=== PATIENT | female | born 1955 | race Caucasian/White ===

== ENCOUNTER 2018-03-17 12:34 | Outpatient (CLI) | payer BC | END 2018-03-17 12:35 | disposition home or self-care (01) | LOC: BICMAMMO 12:34 | PROVIDERS: ATTEND Obstetrics & Gynecology | DX: Z12.31 Encounter for screening mammogram for malignant neoplasm of breast (principal); Z80.3 Family history of malignant neoplasm of breast | CPT/HCPCS: 77063; 77067 ==

== ENCOUNTER 2019-03-22 13:28 | Outpatient (CLI) | payer BC ==
--- NOTE | 2019-03-22 15:49 | MMO ---
Bilateral MAMMO Bilat Screen [facility]. CLINICAL HISTORY: Patient is 63 years old and is seen for screening. The patient has no family history of breast cancer. The patient has a history of other cancer at age 52. The patient has a history of bilateral Breast reduction in 05/1997. VIEWS: The views performed were: bilateral craniocaudal with tomosynthesis and bilateral mediolateral oblique with tomosynthesis. FILMS COMPARED: The present examination has been compared to prior imaging studies performed at [facility] on 02/04/2015, 02/20/2016, 03/11/2017 and 03/17/2018. MAMMOGRAM FINDINGS: The breasts are almost entirely fat. There are no suspicious masses, suspicious calcifications, or new areas of architectural distortion. IMPRESSION: THERE IS NO MAMMOGRAPHIC EVIDENCE OF MALIGNANCY. A ROUTINE FOLLOW-UP MAMMOGRAM IN 1 YEAR IS RECOMMENDED. THE RESULTS OF THIS EXAM WERE SENT TO THE PATIENT. ACR BI-RADS Category 1 - Negative MAMMOGRAPHY NOTE: 1. A negative mammogram report should not delay a biopsy if a dominant of clinically suspicious mass is present. 2. Approximately 10% to 15% of breast cancers are not detected by mammography. 3. Adenosis and dense breasts may obscure an underlying neoplasm. Reported by: CHRISTIAN SEBASTIAN MD Electonically Signed: [id number]
== END 2019-03-22 13:29 | disposition home or self-care (01) ==
LOC: BICMAMMO 13:28
PROVIDERS: ATTEND Obstetrics & Gynecology
DX: Z12.31 Encounter for screening mammogram for malignant neoplasm of breast (principal); Z85.89 Personal history of malignant neoplasm of other organs and systems; Z98.82 Breast implant status
CPT/HCPCS: 77063; 77067

== ENCOUNTER 2020-03-26 12:24 | Outpatient (CLI) | payer MEDICARE ==
--- NOTE | 2020-03-26 13:58 | MMO ---
Bilateral MAMMO Bilat Screen [facility]. CLINICAL HISTORY: Patient is 64 years old and is seen for screening. The patient has no family history of breast cancer. The patient has a history of other cancer at age 52. The patient has a history of bilateral Breast reduction in 05/1997. VIEWS: The views performed were: bilateral craniocaudal with tomosynthesis and bilateral mediolateral oblique with tomosynthesis. FILMS COMPARED: The present examination has been compared to prior imaging studies performed at [facility] on 02/20/2016, 03/11/2017, 03/17/2018 and 03/22/2019. This study has been interpreted with the assistance of computer-aided detection. MAMMOGRAM FINDINGS: The breasts are almost entirely fat. There are no suspicious masses, suspicious calcifications, or new areas of architectural distortion. IMPRESSION: THERE IS NO MAMMOGRAPHIC EVIDENCE OF MALIGNANCY. A ROUTINE FOLLOW-UP MAMMOGRAM IN 1 YEAR IS RECOMMENDED. THE RESULTS OF THIS EXAM WERE SENT TO THE PATIENT. ACR BI-RADS Category 1 - Negative MAMMOGRAPHY NOTE: 1. A negative mammogram report should not delay a biopsy if a dominant of clinically suspicious mass is present. 2. Approximately 10% to 15% of breast cancers are not detected by mammography. 3. Adenosis and dense breasts may obscure an underlying neoplasm. Reported by: CHRISTIAN SEBASTIAN MD Electonically Signed: [id number]
== END 2020-03-26 12:25 | disposition home or self-care (01) ==
LOC: BICMAMMO 12:24
PROVIDERS: ATTEND Obstetrics & Gynecology
DX: Z12.31 Encounter for screening mammogram for malignant neoplasm of breast (principal); Z85.89 Personal history of malignant neoplasm of other organs and systems; Z98.890 Other specified postprocedural states
CPT/HCPCS: 77063; 77067

== ENCOUNTER 2022-04-02 08:34 | Outpatient (CLI) | payer MEDICARE, OTHER | END 2022-04-02 08:35 | disposition home or self-care (01) | LOC: BICMAMMO 08:34 | PROVIDERS: ATTEND Internal Medicine | DX: Z12.31 Encounter for screening mammogram for malignant neoplasm of breast (principal); Z98.890 Other specified postprocedural states; Z85.89 Personal history of malignant neoplasm of other organs and systems | CPT/HCPCS: 77063; 77067 ==

== ENCOUNTER 2022-05-08 08:09 | Outpatient (CLI) | payer MEDICARE, OTHER ==
[2022-05-08 10:03] LABS: #Eosinphils 0.2 10x3/uL (0.0-0.5); #Monocytes 0.6 10x3/uL (0.0-1.1); #Neutrophils 3.3 10x3/uL (1.5-8.4); %Basophils 0.5 % (0.0-2.0); %Eosinophils 4.2 % (0.0-6.0); %Lymphocytes 23.5 % (18.0-47.0); %Monocytes 10.9 % (0.0-10.0); %Neutrophils 60.7 % (40.0-75.0); Mean Corpuscular HGB CONC 33.1 g/dL (32.0-36.0); Mean Corpuscular Volume 90.8 fl (81.6-98.3); Mean Platelet Volume 10.2 fl (7.4-10.4); Platelet Count 278 10x3/uL (150-450); Red Blood Cell (RBC) Count 4.66 10x6/uL (3.90-5.03); White Blood Cell (WBC) Count 5.5 10x3/uL (3.5-10.5)
[2022-05-08 10:20] LABS: Prothrombin Time 10.6 sec (9.5-12.1)
[2022-05-08 10:33] LABS: Anion Gap 12 mmol/L (10-20); BUN (Urea Nitrogen) 15 mg/dL (9.8-20.1); Calc. Creatinine Clearance 0 mL/min (70-130); Calcium 8.9 mg/dL (7.8-10.44); Carbon Dioxide 30 mmol/L (23-31); Chloride 103 mmol/L (98-107); Estimated GFR 86; Glucose 90 mg/dL (80-115); Sodium 140 mmol/L (136-145)
== END 2022-05-08 08:10 | disposition home or self-care (01) ==
LOC: LABBT 08:09
PROVIDERS: ATTEND Orthopaedic Surgery
DX: Z01.818 Encounter for other preprocedural examination (principal); M16.11 Unilateral primary osteoarthritis, right hip; Z20.822 Contact with and (suspected) exposure to COVID-19
CPT/HCPCS: 80048; 85025; 85610; 87081; 87811; 93005; 93010

== ENCOUNTER 2022-05-12 09:57 | Inpatient (IN) | payer MEDICARE, OTHER ==
[2022-05-11 12:00] VITALS: BMI 25.7
[2022-05-12] MEDS ORDERED: Propofol 500 MG/50 ML VIAL ONE (10:19)
[2022-05-12] MEDS ORDERED: diphenhydrAMINE 25 MG CAP PO PRN (10:46)
[2022-05-12] MEDS ORDERED: Acetaminophen 325 MG TAB PO PRN (10:46)
[2022-05-12] MEDS ORDERED: Fentanyl 100 MCG/2 ML VIAL SLOW IVP PRN ×2 (10:46)
[2022-05-12] MEDS ORDERED: Promethazine HCl 25 MG/ML VIAL IM PRN ×2 (10:46→13:29)
[2022-05-12] MEDS ORDERED: HYDROcodone/Acetaminophen 10/325 mg Tablet PO PRN ×2 (10:46)
[2022-05-12] MEDS ORDERED: Ondansetron PF 4 MG/2 ML Vial IVP PRN (10:46)
[2022-05-12] MEDS ORDERED: Zolpidem Tartrate 5 MG TAB PO PRN (10:46)
[2022-05-12] MEDS ORDERED: Vancomycin 1 GM/200 ML BAG ONE (10:47)
[2022-05-12] MEDS ORDERED: Tranexamic Acid 1,000 MG/10 ML VIAL ONE (10:47)
[2022-05-12] MEDS ORDERED: Sodium Chloride 0.9% 100 ML ONE (10:47)
[2022-05-12] MEDS ORDERED: Bupivacaine PF 0.5% 30 ML VIAL ONE (10:57)
[2022-05-12] MEDS ORDERED: fentaNYL Citrate/PF 100 MCG/2 ML SYRINGE ONE (11:02)
[2022-05-12] MEDS ORDERED: Midazolam HCl 2 mg/2 ml Vial ONE (11:15)
[2022-05-12] MEDS ORDERED: Fentanyl 100 MCG/2 ML VIAL ONE ×2 (11:15→13:26)
[2022-05-12] MEDS ORDERED: PROPOFOL 200 MG/20 ML VIAL ONE (11:50)
[2022-05-12] MEDS ORDERED: ePHEDrine 50 MG/ML VIAL ONE (11:50)
[2022-05-12] MEDS ORDERED: Promethazine HCl 25 MG/ML VIAL IVPB PRN (13:29)
[2022-05-12] MEDS ORDERED: Ondansetron HCl/PF 4 MG/2 ML Vial IVP PRN (13:29)
[2022-05-12] MEDS ORDERED: CEFAZOLIN 2 GM in Sodium Chloride 0.9% 100 ML IVPB SCH ×2 (14:00→20:00)
[2022-05-12] MEDS ORDERED: Ketorolac Tromethamine 30 MG/ML VIAL IVP SCH ×2 (14:00→20:00)
[2022-05-12] MEDS ORDERED: hydrALAZINE 20 MG/ML VIAL ONE (16:06)
[2022-05-12] MEDS: Sodium Chloride 0.9% 1,000 ML IV SCH ×2 (17:09→22:07)
[2022-05-12] MEDS: Aspirin 81 mg Enteric Coated Tablet PO SCH (21:20)
[2022-05-12] MEDS: Senokot S 8.6-50 MG TAB PO SCH (21:20)
[2022-05-12] MEDS: Ferrous Gluconate 324 MG TAB PO SCH (21:20)
[2022-05-12] MEDS: FLUoxetine HCl 20 MG CAP PO SCH (21:21)
[2022-05-13] MEDS ORDERED: CEFAZOLIN 2 GM in Sodium Chloride 0.9% 100 ML IVPB SCH (01:00)
[2022-05-13] MEDS: Ketorolac Tromethamine 30 MG/ML VIAL IVP SCH ×3 (01:35→17:25)
[2022-05-13] MEDS: Levothyroxine Sodium 112 MCG TAB PO SCH (05:42)
[2022-05-13 06:02] LABS: Hemoglobin 12.9 g/dL (12.0-16.0); Mean Corpuscular HGB CONC 31.9 g/dL (32.0-36.0); Mean Corpuscular Hemoglobin 30.6 pg (27.0-31.0); Mean Platelet Volume 7.8 fL (7.4-10.4); Platelet Count 246 thou/uL (130-400); RBC Distribution Width 12.6 % (11.5-14.5); Red Blood Cell (RBC) Count 4.22 mill/uL (4.20-5.40); White Blood Cell (WBC) Count 15.4 thou/uL (4.8-10.8)
[2022-05-13] MEDS: Sodium Chloride 0.9% 1,000 ML IV SCH ×2 (06:09→17:40)
[2022-05-13] MEDS: Multivitamin W/ Minerals 1 TAB PO SCH (10:09)
[2022-05-13] MEDS: Senokot S 8.6-50 MG TAB PO SCH ×2 (10:09→21:58)
[2022-05-13] MEDS: Cholecalciferol 1,000 UNITS (25 MCG) TAB PO SCH (10:09)
[2022-05-13] MEDS: Aspirin 81 mg Enteric Coated Tablet PO SCH ×2 (10:09→21:41)
[2022-05-13] MEDS: Ferrous Gluconate 324 MG TAB PO SCH ×2 (10:09→21:40)
[2022-05-13] MEDS: LACTINEX 1 TAB PO SCH (10:17)
[2022-05-13] MEDS ORDERED: Tamsulosin HCl 0.4 MG CAP PO SCH (11:00)
[2022-05-13] MEDS: FLUoxetine HCl 20 MG CAP PO SCH (21:41)
[2022-05-14] MEDS: Ketorolac Tromethamine 30 MG/ML VIAL IVP SCH ×2 (01:40→09:23)
[2022-05-14 02:25] LABS: #Eosinphils 0.1 thou/uL (0.0-0.7); #Lymphocytes 1.4 thou/uL (1.20-3.40); #Monocytes 1.4 thou/uL (0.11-0.59); #Neutrophils 7.9 thou/uL (1.40-6.50); %Basophils 0.1 % (0.0-1.0); %Eosinophils 0.7 % (0.0-10.0); %Lymphocytes 13.3 % (21.0-51.0); %Monocytes 12.9 % (0.0-10.0); %Neutrophils 72.9 % (42.0-75.0); Hemoglobin 11.3 g/dL (12.0-16.0); Mean Corpuscular HGB CONC 32.5 g/dL (32.0-36.0); Mean Corpuscular Hemoglobin 31.2 pg (27.0-31.0); Mean Corpuscular Volume 95.8 fL (78.0-98.0); Mean Platelet Volume 8.1 fL (7.4-10.4); Platelet Count 195 thou/uL (130-400); RBC Distribution Width 12.5 % (11.5-14.5); Red Blood Cell (RBC) Count 3.62 mill/uL (4.20-5.40); White Blood Cell (WBC) Count 10.8 thou/uL (4.8-10.8)
[2022-05-14 02:42] LABS: Anion Gap 11 mmol/L (10-20); BUN (Urea Nitrogen) 17 mg/dL (9.8-20.1); Calc. Creatinine Clearance 77 mL/min (70-130); Carbon Dioxide 25 mmol/L (23-31); Chloride 100 mmol/L (98-107); Estimated GFR 86; Glucose 129 mg/dL (80-115); Potassium 3.4 mmol/L (3.5-5.1); Sodium 133 mmol/L (136-145)
[2022-05-14] MEDS: Sodium Chloride 0.9% 1,000 ML IV SCH ×2 (03:12→12:55)
[2022-05-14] MEDS: Levothyroxine Sodium 112 MCG TAB PO SCH (06:02)
[2022-05-14] MEDS: LACTINEX 1 TAB PO SCH (09:20)
[2022-05-14] MEDS: Senokot S 8.6-50 MG TAB PO SCH (09:25)
[2022-05-14] MEDS: Multivitamin W/ Minerals 1 TAB PO SCH (09:25)
[2022-05-14] MEDS: Aspirin 81 mg Enteric Coated Tablet PO SCH (09:25)
[2022-05-14] MEDS: Cholecalciferol 1,000 UNITS (25 MCG) TAB PO SCH (09:25)
[2022-05-14] MEDS: Ferrous Gluconate 324 MG TAB PO SCH (09:25)
[2022-05-14 12:15] VITALS: BP 129/78; TEMP 98.8
== END 2022-05-14 16:47 | disposition home or self-care (01) | DRG 470 ==
LOC: SDC 09:57 → SJJU 14:05 → OBSVTOIN 05-14 07:43
PROVIDERS: ADMIT Orthopaedic Surgery; ATTEND Orthopaedic Surgery
PROC: 0SR9039 Replacement of Right Hip Joint with Ceramic Synthetic Substitute, Cemented, Open Approach (ICD-10-PCS; principal; 2022-05-12)
DX: M16.11 Unilateral primary osteoarthritis, right hip (principal); Z20.822 Contact with and (suspected) exposure to COVID-19; E78.5 Hyperlipidemia, unspecified; I25.10 Atherosclerotic heart disease of native coronary artery without angina pectoris; E03.9 Hypothyroidism, unspecified; Z95.5 Presence of coronary angioplasty implant and graft; Z79.890 Hormone replacement therapy; Z79.899 Other long term (current) drug therapy; Z88.8 Allergy status to other drugs, medicaments and biological substances
CPT/HCPCS: 36415; 80048; 85025; 85027; 96374; 96376; C1776; G0378; J0360; J0690; J1885; J2250; J2704; J3010; J3370; J3490; S0020

== ENCOUNTER 2024-03-24 07:53 | Inpatient (IN) | payer MEDICARE, OTHER ==
[2024-03-24] MEDS ORDERED: Ondansetron ODT 4 MG TAB PO PRN (10:26)
[2024-03-24] MEDS ORDERED: Calcium Carbonate 500 MG ChewTAB PO PRN (10:26)
[2024-03-24] MEDS ORDERED: Senokot S 8.6-50 MG TAB PO PRN (10:26)
[2024-03-24] MEDS: Piperacillin/Tazobactam 3.375 GM in Sodium Chloride 0.9% 100 ML IVPB SCH ×2 (11:24→17:58)
[2024-03-24] MEDS: Pantoprazole 40 MG VIAL IVP SCH ×2 (11:25→20:14)
[2024-03-24] MEDS: Lactated Ringer's 1,000 ML IV SCH (11:26)
[2024-03-24 13:01] VITALS: BMI 25.8
[2024-03-24] MEDS ORDERED: Montelukast Sodium 10 mg Tablet PO PRN (13:51)
[2024-03-24] MEDS: fentaNYL 50 mcg/mL 1 mL Vial SLOW IVP PRN (16:15)
[2024-03-24] MEDS: Ondansetron PF 4 MG/2 ML Vial IVP PRN (18:03)
[2024-03-24] MEDS: Isosorbide Mononitrate 30 MG ER.TAB PO SCH (20:13)
[2024-03-24] MEDS: FLUoxetine HCl 20 MG CAP PO SCH (20:13)
[2024-03-24] MEDS: Cholecalciferol 1,000 UNITS (25 MCG) TAB PO SCH (20:13)
[2024-03-25 05:27] LABS: #Basophils 0.04 10x3/uL (0.0-0.2); %Basophils 0.5 % (0.0-1.0); %Eosinophils 7.7 % (0.0-10.0); %Lymphocytes 13.1 % (21.0-51.0); %Monocytes 11.3 % (0.0-10.0); %Neutrophils 67.1 % (42.0-75.0); Hemoglobin 12.2 g/dL (12.0-16.0); Mean Corpuscular HGB CONC 33.9 g/dL (32.0-36.0); Mean Corpuscular Hemoglobin 30.5 pg (27.0-31.0); Mean Platelet Volume 10.5 fL (7.4-10.4); Platelet Count 204 10x3/uL (130-400); RBC Distribution Width 13.3 % (11.5-14.5)
[2024-03-25] MEDS: Levothyroxine Sodium 112 MCG TAB PO SCH (06:08)
[2024-03-25 06:10] LABS: ALT (SGPT) 257 U/L (8-55); AST (SGOT) 183 U/L (5-34); Albumin 2.7 g/dL (3.4-4.8); Alkaline Phosphatase 241 U/L (40-110); Anion Gap 11 mmol/L (10-20); BUN (Urea Nitrogen) 5 mg/dL (9.8-20.1); Bilirubin, Direct 2.7 mg/dL (0.1-0.3); Bilirubin, Total 3.4 mg/dL (0.2-1.2); Calc. Creatinine Clearance 84 mL/min (70-130); Calcium 8.2 mg/dL (7.8-10.44); Carbon Dioxide 23 mmol/L (23-31); Chloride 105 mmol/L (98-107); Estimated GFR 94; Glucose 99 mg/dL (80-115); Lipase 11 U/L (8-78); Potassium 3.5 mmol/L (3.5-5.1); Protein, Total 5.4 g/dL (5.8-8.1); Sodium 135 mmol/L (136-145)
[2024-03-25] MEDS: Lactated Ringer's 1,000 ML IV SCH (09:37)
[2024-03-25] MEDS: Lorazepam 1 MG TAB PO SCH (09:38)
[2024-03-25] MEDS ORDERED: Morphine 2 MG/ML VIAL SLOW IVP PRN (10:30)
[2024-03-25 14:46] VITALS: BMI 25.8
[2024-03-25] MEDS ORDERED: PROPOFOL 20 ML ONE (14:56)
[2024-03-25] MEDS ORDERED: fentaNYL PF 100 MCG/2 ML SYRINGE ONE (14:56)
[2024-03-25] MEDS ORDERED: Rocuronium Bromide 10 MG/ML (10ML VIAL) ONE (15:17)
[2024-03-25] MEDS ORDERED: SUGAMMADEX SODIUM 200 MG/2 ML VIAL ONE (15:32)
[2024-03-25] MEDS ORDERED: Ondansetron PF 4 MG/2 ML Vial ONE (15:32)
[2024-03-25] MEDS ORDERED: Dexamethasone 20 MG/5 ML VIAL ONE (15:33)
[2024-03-25] MEDS ORDERED: Ondansetron HCl/PF 4 MG/2 ML Vial IVP PRN (16:12)
[2024-03-25] MEDS ORDERED: Indomethacin 50 MG SUPP ONE (16:13)
[2024-03-25] MEDS ORDERED: Iopamidol 15 ML ONE (16:15)
[2024-03-25] MEDS ORDERED: hydrALAZINE 20 MG/ML VIAL ONE (16:40)
[2024-03-26 07:13] LABS: #Basophils Less than 0.03 10x3/uL (0.0-0.2); #Eosinphils Less than 0.03 10x3/uL (0.0-0.7); %Basophils 0.2 % (0.0-1.0); %Lymphocytes 11.4 % (21.0-51.0); %Monocytes 5.7 % (0.0-10.0); %Neutrophils 82.2 % (42.0-75.0); Hematocrit 38.8 % (36.0-47.0); Hemoglobin 13.2 g/dL (12.0-16.0); Mean Corpuscular Volume 88.2 fL (78.0-98.0); Mean Platelet Volume 10.7 fL (7.4-10.4); Platelet Count 253 10x3/uL (130-400); RBC Distribution Width 13.2 % (11.5-14.5)
[2024-03-26 08:01] LABS: ALT (SGPT) 248 U/L (8-55); AST (SGOT) 129 U/L (5-34); Albumin 2.9 g/dL (3.4-4.8); Alkaline Phosphatase 307 U/L (40-110); Anion Gap 17 mmol/L (10-20); BUN (Urea Nitrogen) 7 mg/dL (9.8-20.1); Bilirubin, Total 2.2 mg/dL (0.2-1.2); Calc. Creatinine Clearance 81 mL/min (70-130); Calcium 8.5 mg/dL (7.8-10.44); Carbon Dioxide 22 mmol/L (23-31); Chloride 103 mmol/L (98-107); Estimated GFR 92; Globulin 3.1 g/dL (2.4-3.5); Glucose 116 mg/dL (80-115); Lipase 16 U/L (8-78); Potassium 3.5 mmol/L (3.5-5.1); Sodium 138 mmol/L (136-145)
[2024-03-26 13:34] VITALS: BP 178/92; TEMP 98.1
[2024-03-26] MEDS: Morphine 4 MG/ML VIAL SLOW IVP PRN (14:07)
== END 2024-03-26 15:25 | disposition home or self-care (01) | DRG 445 ==
LOC: T4-A 09:47 → OBSVTOIN 03-26 12:04
PROVIDERS: ADMIT Internal Medicine; ATTEND Internal Medicine
PROC: 0F798DZ Dilation of Common Bile Duct with Intraluminal Device, Via Natural or Artificial Opening Endoscopic (ICD-10-PCS; principal; 2024-03-25)
DX: K83.1 Obstruction of bile duct (principal); C25.0 Malignant neoplasm of head of pancreas; C78.7 Secondary malignant neoplasm of liver and intrahepatic bile duct; E03.9 Hypothyroidism, unspecified; I25.10 Atherosclerotic heart disease of native coronary artery without angina pectoris; E78.5 Hyperlipidemia, unspecified; F41.9 Anxiety disorder, unspecified; Z96.651 Presence of right artificial knee joint; Z79.899 Other long term (current) drug therapy; Z88.8 Allergy status to other drugs, medicaments and biological substances; Z85.048 Personal history of other malignant neoplasm of rectum, rectosigmoid junction, and anus; Z98.890 Other specified postprocedural states; Z90.89 Acquired absence of other organs
CPT/HCPCS: 36415; 74330; 80048; 80053; 80076; 83690; 85025; 86301; 96365; 96366; 96375; 96376; C2625; G0378; J0360; J1100; J2272; J2405; J2470; J2543; J2704; J3010; J7120; Q9967

== ENCOUNTER 2024-04-25 14:47 | Inpatient (IN) | payer MEDICARE, OTHER ==
[2024-04-25 15:23] VITALS: BMI 22.7
[2024-04-25] MEDS: Sodium Chloride 0.9% 1,000 ML IV SCH (16:41)
[2024-04-25 17:35] LABS: Hematocrit 35.6 % (36.0-47.0); Hemoglobin 12.1 g/dL (12.0-16.0); Mean Corpuscular Volume 88.3 fL (78.0-98.0); Mean Platelet Volume 12.1 fL (7.4-10.4); Platelet Count 71 10x3/uL (130-400); RBC Distribution Width 14.6 % (11.5-14.5); Red Blood Cell (RBC) Count 4.03 mill/uL (4.20-5.40); Reflex for Review?? YES
[2024-04-25 17:56] LABS: Band 41 % (5-11); Large Platelets 10.9 % (0-5); Lymphocytes 15 % (21-51); Monocytes 11 % (0-10); Neutrophil 31 % (42-75); Nucleated RBC (Manual Ct) 3 % (0); Platelet Adequacy Comment Platelets Decreased; Polychromasia SLIGHT = 2-3 cells HPF (0-2); Smudge Cells 6.7 %
[2024-04-25 18:00] LABS: #Basophils Less than 0.03 10x3/uL (0.0-0.2); #Eosinphils Less than 0.03 10x3/uL (0.0-0.7); %Basophils 1.5 % (0.0-1.0); %Lymphocytes 26.9 % (21.0-51.0); %Neutrophils 65.6 % (42.0-75.0)
[2024-04-25 18:04] LABS: ALT (SGPT) 88 U/L (8-55); AST (SGOT) 39 U/L (5-34); Albumin 2.6 g/dL (3.4-4.8); Alkaline Phosphatase 459 U/L (40-110); Anion Gap 13 mmol/L (10-20); BUN (Urea Nitrogen) 22 mg/dL (9.8-20.1); Bilirubin, Total 1.1 mg/dL (0.2-1.2); Calc. Creatinine Clearance 64 mL/min (70-130); Calcium 7.9 mg/dL (7.8-10.44); Carbon Dioxide 23 mmol/L (23-31); Chloride 104 mmol/L (98-107); Estimated GFR 81; Globulin 2.8 g/dL (2.4-3.5); Glucose 180 mg/dL (80-115); Potassium 3.9 mmol/L (3.5-5.1); Protein, Total 5.4 g/dL (5.8-8.1); Sodium 136 mmol/L (136-145)
[2024-04-25] MEDS: Acetaminophen 325 MG TAB PO PRN (19:44)
[2024-04-25] MEDS: Morphine 2 MG/ML VIAL SLOW IVP PRN (19:44)
[2024-04-25] MEDS: Promethazine HCl 25 MG in Sodium Chloride 0.9% 50 ML IVPB PRN (20:27)
[2024-04-26] MEDS: Prochlorperazine Edisylate 10 MG in Sodium Chloride 0.9% 50 ML IVPB PRN (01:23)
[2024-04-26] MEDS: Acetaminophen 650 MG Suppository PR PRN (01:32)
[2024-04-26 05:25] LABS: Hematocrit 33.2 % (36.0-47.0); Hemoglobin 11.5 g/dL (12.0-16.0); Mean Corpuscular HGB CONC 34.6 g/dL (32.0-36.0); Mean Corpuscular Volume 86.7 fL (78.0-98.0); Mean Platelet Volume 11.5 fL (7.4-10.4); Platelet Count 64 10x3/uL (130-400); RBC Distribution Width 14.3 % (11.5-14.5); Red Blood Cell (RBC) Count 3.83 mill/uL (4.20-5.40)
[2024-04-26 05:59] LABS: ALT (SGPT) 81 U/L (8-55); AST (SGOT) 36 U/L (5-34); Albumin 2.5 g/dL (3.4-4.8); Alkaline Phosphatase 408 U/L (40-110); Anion Gap 14 mmol/L (10-20); BUN (Urea Nitrogen) 17 mg/dL (9.8-20.1); Bilirubin, Total 1.3 mg/dL (0.2-1.2); Calc. Creatinine Clearance 67 mL/min (70-130); Calcium 7.9 mg/dL (7.8-10.44); Carbon Dioxide 20 mmol/L (23-31); Chloride 108 mmol/L (98-107); Estimated GFR 86; Globulin 2.8 g/dL (2.4-3.5); Glucose 156 mg/dL (80-115); Potassium 3.2 mmol/L (3.5-5.1); Protein, Total 5.3 g/dL (5.8-8.1); Sodium 139 mmol/L (136-145)
[2024-04-26 06:09] LABS: Band 22 % (5-11); Dohle Bodies SLIGHT; Lymphocytes 43 % (21-51); Metamyelocyte 2 % (0-0); Monocytes 6 % (0-10); Neutrophil 28 % (42-75); Platelet Adequacy Comment Platelets Decreased; RBC Morphology Within Normal Limits; Smudge Cells 16.2 %; Toxic Granulation SLIGHT
[2024-04-26] MEDS: Pantoprazole 40 MG VIAL IVP SCH ×2 (08:21→21:03)
[2024-04-26 10:38] VITALS: BMI 22.7
[2024-04-26] MEDS: Potassium Chloride 20 MEQ in Lactated Ringer's 1,000 ML IV SCH ×5 (12:19→21:33)
[2024-04-26] MEDS ORDERED: Electrolyte Replacement Protocol 1 EACH FS SCH (12:45)
[2024-04-26] MEDS: Piperacillin/Tazobactam 3.375 GM in Sodium Chloride 0.9% 100 ML IVPB SCH ×2 (15:11→19:10)
[2024-04-26] MEDS: Ondansetron PF 4 MG/2 ML Vial IVP SCH ×2 (15:14→22:01)
[2024-04-26] MEDS: D5W-AA 4.25% with LYTES 1,000 ML IV SCH (17:09)
[2024-04-26] MEDS ORDERED: Piperacillin/Tazobactam 4.5 GM in Sodium Chloride 0.9% 100 ML IVPB SCH (18:00)
[2024-04-26] MEDS: Amino Acids 4.25 %/Dextrose 5% 1,000 ML IV SCH (18:44)
[2024-04-26] MEDS: Potassium Chloride 20 MEQ in Premix 1 BAG IVPB SCH (19:10)
[2024-04-26 19:27] VITALS: BP 84/58
[2024-04-26 20:11] LABS: Hematocrit 30.3 % (36.0-47.0); Hemoglobin 10.1 g/dL (12.0-16.0); Mean Corpuscular HGB CONC 33.3 g/dL (32.0-36.0); Mean Corpuscular Hemoglobin 29.8 pg (27.0-31.0); Mean Corpuscular Volume 89.4 fL (78.0-98.0); Mean Platelet Volume 11.5 fL (7.4-10.4); Platelet Count 62 10x3/uL (130-400); RBC Distribution Width 14.8 % (11.5-14.5); Red Blood Cell (RBC) Count 3.39 mill/uL (4.20-5.40)
[2024-04-26 20:20] LABS: ALT (SGPT) 66 U/L (8-55); AST (SGOT) 27 U/L (5-34); Albumin 2.2 g/dL (3.4-4.8); Alkaline Phosphatase 323 U/L (40-110); Anion Gap 17 mmol/L (10-20); BUN (Urea Nitrogen) 28 mg/dL (9.8-20.1); Bilirubin, Total 0.9 mg/dL (0.2-1.2); Calc. Creatinine Clearance 32 mL/min (70-130); Calcium 7.6 mg/dL (7.8-10.44); Carbon Dioxide 17 mmol/L (23-31); Chloride 108 mmol/L (98-107); Estimated GFR 35; Globulin 2.6 g/dL (2.4-3.5); Glucose 146 mg/dL (80-115); Magnesium 1.7 mg/dL (1.6-2.6); Potassium 3.4 mmol/L (3.5-5.1); Protein, Total 4.8 g/dL (5.8-8.1); Sodium 139 mmol/L (136-145)
[2024-04-26 20:21] LABS: Lactic Acid 6.66 mmol/L (0.5-2.2)
[2024-04-26] MEDS: Albumin 25% 25 GM (100 mL) BOT IVPB SCH (20:25)
[2024-04-26 20:37] LABS: Band 11 % (5-11); Burr Cells SLIGHT = 2-5 cells HPF (0-1); Eosinophils 4 % (0-10); Large Platelets 107.4 % (0-5); Lymphocytes 57 % (21-51); Macrocytosis SLIGHT = 6-15 cells HPF (0-5); Monocytes 4 % (0-10); Neutrophil 13 % (42-75); Nucleated RBC (Manual Ct) 7 % (0); Platelet Adequacy Comment Platelets Decreased; Reactive Lymphocytes 6 % (0-10); Smudge Cells 22.2 %
[2024-04-26] MEDS: Sodium Chloride 0.9% 500 ML IV SCH (20:55)
[2024-04-26] MEDS: NOREPINEPHRINE 8 MG/250 ML-D5W 250 ML IVPB SCH (21:03)
[2024-04-26] MEDS: Lactated Ringer's 500 ML IV SCH ×2 (21:33→22:42)
[2024-04-26] MEDS: Magnesium 2 GM/50 ML(in water) 2 GM in Premix 1 BAG IVPB SCH (22:44)
[2024-04-26 23:09] LABS: Actual Bicarbonate (HCO3v) 15.4 mEq/L (22-28); Base Excess -9.1 mEq/L (-2.0 to +3.0); Calcium, Ionized (venous) 0.99 mmol/L (1.16-1.32); Chloride (VBG) 108 mmol/L (98-106); Hematocrit-VBG 28 % (36.0-47.0); Hemoglobin (Hb) 9.5 g/dL (11.7-16.1); Potassium (VBG) 3.88 mmol/L (3.70-5.30); Sodium 137 mmol/L (133-146); pH (venous) 7.347 (7.32-7.43)
[2024-04-26 23:39] LABS: Anion Gap 17 mmol/L (10-20); BUN (Urea Nitrogen) 28 mg/dL (9.8-20.1); Calc. Creatinine Clearance 38 mL/min (70-130); Calcium 7.2 mg/dL (7.8-10.44); Carbon Dioxide 14 mmol/L (23-31); Chloride 110 mmol/L (98-107); Estimated GFR 43; Glucose 155 mg/dL (80-115); Potassium 3.9 mmol/L (3.5-5.1); Sodium 137 mmol/L (136-145)
[2024-04-26 23:48] LABS: Lactic Acid 5.86 mmol/L (0.5-2.2)
[2024-04-27] MEDS: Sodium Bicarbonate 150 MEQ in Sterile Water 1,000 ML IV SCH (00:17)
[2024-04-27] MEDS: Amiodarone 450 MG in Dextrose 5% in Water 250 ML IVPB SCH (03:40)
[2024-04-27 03:49] LABS: Hematocrit 29.1 % (36.0-47.0); Hemoglobin 9.8 g/dL (12.0-16.0); Mean Corpuscular HGB CONC 33.7 g/dL (32.0-36.0); Mean Corpuscular Hemoglobin 30.1 pg (27.0-31.0); Mean Corpuscular Volume 89.3 fL (78.0-98.0); Mean Platelet Volume 11.6 fL (7.4-10.4); Platelet Count 75 10x3/uL (130-400); RBC Distribution Width 14.9 % (11.5-14.5); Red Blood Cell (RBC) Count 3.26 mill/uL (4.20-5.40)
[2024-04-27 03:57] LABS: ALT (SGPT) 61 U/L (8-55); AST (SGOT) 28 U/L (5-34); Albumin 2.5 g/dL (3.4-4.8); Alkaline Phosphatase 271 U/L (40-110); Anion Gap 15 mmol/L (10-20); BUN (Urea Nitrogen) 28 mg/dL (9.8-20.1); Bilirubin, Total 0.9 mg/dL (0.2-1.2); Calc. Creatinine Clearance 39 mL/min (70-130); Calcium 7.5 mg/dL (7.8-10.44); Carbon Dioxide 18 mmol/L (23-31); Chloride 108 mmol/L (98-107); Estimated GFR 45; Globulin 2.5 g/dL (2.4-3.5); Glucose 148 mg/dL (80-115); Sodium 137 mmol/L (136-145)
[2024-04-27 04:16] LABS: Lactic Acid 4.33 mmol/L (0.5-2.2)
[2024-04-27 04:42] LABS: INR-International Normal Ratio 1.8; PTT 39.4 sec (22.9-36.1); Prothrombin Time 20.8 sec (12.0-14.7)
[2024-04-27] MEDS: Magnesium 2 GM/50 ML(in water) 2 GM in Premix 1 BAG IVPB SCH (05:24)
[2024-04-27] MEDS: Albumin 25% 25 GM (100 mL) BOT IVPB SCH (05:28)
[2024-04-27] MEDS: Amiodarone 150 MG, Admixture Fee 1 EACH in Dextrose 5% in Water 100 ML IVPB SCH (05:38)
[2024-04-27 06:31] LABS: Burr Cells SLIGHT = 2-5 cells HPF (0-1); Eosinophils 19 % (0-10); Lymphocytes 57 % (21-51); Macrocytosis SLIGHT = 6-15 cells HPF (0-5); Monocytes 13 % (0-10); Neutrophil 11 % (42-75); Platelet Adequacy Comment Platelets Decreased; Poikilocytosis SLIGHT = 6-15 cells HPF (0-5); Target Cells SLIGHT = 2-5 cells HPF (0-1)
[2024-04-27] MEDS: OLANZapine 5 MG TAB PO SCH (09:35)
[2024-04-27] MEDS ORDERED: HYDROmorphone 1 MG/ML SYRINGE SLOW IVP PRN (09:53)
[2024-04-27] MEDS: Artificial Tear Ophth Sol 15 ML BOT EA EYE PRN (12:28)
[2024-04-27] MEDS ORDERED: Lorazepam 2 MG/ML VIAL SLOW IVP PRN (13:14)
[2024-04-27] MEDS: HYDROmorphone 0.5 MG/0.5 ML SYRINGE SLOW IVP PRN ×2 (13:43→23:41)
[2024-04-27 16:31] VITALS: TEMP 98.4
[2024-04-27] MEDS: Lorazepam 2 MG/ML VIAL SLOW IVP PRN (23:40)
== END 2024-04-28 00:02 | disposition expired | DRG 391 ==
LOC: INTOOBSV 14:47 → MSONC 14:47 → OBSVTOIN 04-26 12:41 → CCU 04-26 20:01
PROVIDERS: ADMIT Internal Medicine; ATTEND Family Medicine
PROC: 3E03329 Introduction of Other Anti-infective into Peripheral Vein, Percutaneous Approach (ICD-10-PCS; principal; 2024-04-26)
PROC: 30233J1 Transfusion of Nonautologous Serum Albumin into Peripheral Vein, Percutaneous Approach (ICD-10-PCS; 2024-04-26)
PROC: 3E033XZ Introduction of Vasopressor into Peripheral Vein, Percutaneous Approach (ICD-10-PCS; 2024-04-26)
DX: K52.89 Other specified noninfective gastroenteritis and colitis (principal); A41.9 Sepsis, unspecified organism; D61.810 Antineoplastic chemotherapy induced pancytopenia; C78.7 Secondary malignant neoplasm of liver and intrahepatic bile duct; K56.7 Ileus, unspecified; C25.2 Malignant neoplasm of tail of pancreas; N17.9 Acute kidney failure, unspecified; Z51.5 Encounter for palliative care; Z66 Do not resuscitate; E86.0 Dehydration; F41.9 Anxiety disorder, unspecified; E03.9 Hypothyroidism, unspecified; R57.1 Hypovolemic shock; I48.91 Unspecified atrial fibrillation; Z96.641 Presence of right artificial hip joint; I73.00 Raynaud's syndrome without gangrene; I25.10 Atherosclerotic heart disease of native coronary artery without angina pectoris; D01.3 Carcinoma in situ of anus and anal canal; G47.33 Obstructive sleep apnea (adult) (pediatric); D70.1 Agranulocytosis secondary to cancer chemotherapy; T45.1X5A Adverse effect of antineoplastic and immunosuppressive drugs, initial encounter; I10 Essential (primary) hypertension; R53.81 Other malaise; R50.81 Fever presenting with conditions classified elsewhere; Z88.8 Allergy status to other drugs, medicaments and biological substances; Z98.890 Other specified postprocedural states; Z79.890 Hormone replacement therapy; Z92.21 Personal history of antineoplastic chemotherapy; Z92.3 Personal history of irradiation; Z90.89 Acquired absence of other organs; Z79.899 Other long term (current) drug therapy; Z95.818 Presence of other cardiac implants and grafts; E87.6 Hypokalemia
CPT/HCPCS: 36415; 36416; 74018; 74177; 80048; 80053; 82533; 82805; 83605; 83735; 84443; 85025; 85060; 85610; 85730; 86301; 93005; 93010; 93306; 96374; 96375; 96376; A4217; G0378; J0282; J0780; J1170; J1447; J2060; J2272; J2405; J2470; J2543; J2550; J3475; J3480; J7030; J7070; J7120; P9047